=== PATIENT | female | born 1990 | race Two or more races ===

== ENCOUNTER 2017-03-11 20:08 | Emergency (ER) | payer MEDICAID ==
[~2017-03-11] VITALS: Ht 157.5 cm; Wt 53.0 kg
[2017-03-11 21:02] VITALS: BP 122/82
[2017-03-12] MEDS ORDERED: DIPHENHYDRAMINE 50MG CAPSULE PO ONE (00:30)
[2017-03-12] MEDS ORDERED: PREDNISONE 20MG TABLET PO ONE (00:30)
[2017-03-12] MEDS ORDERED: FAMOTIDINE 20MG TABLET PO ONE (00:30)
== END 2017-03-12 01:48 | disposition home or self-care (01) ==
LOC: ER 20:08
DX: T78.40XA Allergy, unspecified, initial encounter (principal); X58.XXXA Exposure to other specified factors, initial encounter
CPT/HCPCS: 99283; Q0163